=== PATIENT | female | born 1990 | race Caucasian/White ===

== ENCOUNTER 2024-03-20 07:18 | Emergency (ER) | payer SELFPAY ==
[~2024-03-20] VITALS: Ht 170.2 cm; Wt 59.0 kg
[2024-03-20 07:30] VITALS: BP 132/90; TEMP 98.3; O2SAT 99
[2024-03-20 09:48] VITALS: PULSE 92; RESP 18
[2024-03-20] MEDS: ACETAMINOPHEN 325MG TABLET PO ONE (11:14)
== END 2024-03-20 11:15 | disposition home or self-care (01) ==
LOC: ER 08:28
DX: S09.90XA Unspecified injury of head, initial encounter (principal); M54.2 Cervicalgia; M25.512 Pain in left shoulder; M54.6 Pain in thoracic spine; V49.49XA Driver injured in collision with other motor vehicles in traffic accident, initial encounter; Y93.89 Activity, other specified; Y92.89 Other specified places as the place of occurrence of the external cause; Y99.8 Other external cause status
CPT/HCPCS: 73030; 99284